=== PATIENT | female | born 2000 | race Caucasian/White ===

== ENCOUNTER 2021-12-15 10:32 | Emergency (ER) | payer OTHER ==
[~2021-12-15] VITALS: Ht 167.6 cm; Wt 81.6 kg
[2021-12-15 11:22] VITALS: BP_SYST 153
--- NOTE | 2021-12-15 13:15 | NUR ---
Pt bib self to ER c/o Hemoptysis r/t dry cough. Pt denies sob, denies NV and is sitting in chair upright aaox4 skin intact. No PMHx
--- NOTE | 2021-12-15 13:20 | NUR ---
Specimen collected from throat and nares sent to lab.
[2021-12-15 14:12] LABS: STREPTOCOCCUS A SCREEN (RAPID) NEGATIVE (NEGATIVE)
--- NOTE | 2021-12-15 15:39 | NUR ---
Patient to ER bed 6 for evaluation. Side rails up. Report given to Emery SERNA.
[2021-12-15] MEDS ORDERED: ALBUTEROL SULFATE 0.083% 2.5 MG/3 ML VIAL.NEB INH ONE (15:45)
[2021-12-15] MEDS ORDERED: IBUP-1969 PO (17:40)
[2021-12-15] MEDS ORDERED: GUAI100S14 PO (17:41)
[2021-12-15] MEDS ORDERED: ALBMDI INH (17:41)
--- NOTE | 2021-12-15 17:55 | NUR ---
Patient given written and verbal discharge instructions and verbalizes understanding. ER MD discussed with patient the results and treatment provided. Patient in stable condition. Rx of given. Patient educated on pain management and to follow up with PMD. Pain Scale []. Opportunity for questions provided and answered. Medication side effect fact sheet provided.
--- NOTE | 2021-12-15 17:56 | NUR ---
A/OX4 VSS VERBALIZED UNDERSTANDING OF DC INSTRUCTIONS, ALL QUESTIONS ANSWERED, RESPIRATIONS EVEN NO LABORED, AMBULATED WITH STEADY GAIT.
== END 2021-12-15 17:54 | disposition home or self-care (01) ==
LOC: SED 10:32
DX: J20.8 Acute bronchitis due to other specified organisms (principal); R06.02 Shortness of breath; R05.9 Cough, unspecified; Z20.822 Contact with and (suspected) exposure to COVID-19
CPT/HCPCS: 36415; 71045; 81025; 86403; 87081; 87426; 94640; 99284; J7613